=== PATIENT | female | born 1980 | race Hispanic/Latino ===

== ENCOUNTER 2024-05-22 01:18 | Emergency (ER) | payer SELFPAY ==
[~2024-05-22] VITALS: Ht 154.9 cm; Wt 81.6 kg
[2024-05-22 01:50] VITALS: TEMP 98.7
[2024-05-22 01:53] LABS: BASOPHILS # (AUTO) 0.07 K/uL (0.00-0.20); BASOPHILS % (AUTO) 0.5 % (0.0-5.0); EOSINOPHILS # (AUTO) 0.05 K/uL (0.00-0.70); EOSINOPHILS % (AUTO) 0.4 % (0.0-8.0); HEMATOCRIT 39.9 % (36-48); IMMATURE GRANULOCYTE ABSOLUTE 0.05 K/uL (0-1); LYMPHOCYTES # (AUTO) 3.1 K/uL (1.0-4.8); LYMPHOCYTES % (AUTO) 23.5 % (21.0-51.0); MEAN CORPUSCULAR HEMOGLOBIN 29.4 pg (27.0-33.0); MEAN CORPUSCULAR HGB CONC 33.3 g/dL (32.0-36.0); MEAN CORPUSCULAR VOLUME 88.1 fL (79-99); MONOCYTES # (AUTO) 0.6 K/uL (0.1-1.0); MONOCYTES % (AUTO) 4.4 % (3.0-13.0); NEUTROPHILS # (AUTO) 9.2 K/uL (1.8-7.7); NEUTROPHILS % (AUTO) 70.8 % (40.0-77.0); PLATELET COUNT (AUTO) 388 K/uL (130-400); RED BLOOD CELL COUNT(AUTO) 4.53 MIL/uL (4.00-5.50); RED CELL DISTRIBUTION WIDTH 13.2 % (11.0-15.5); WHITE BLOOD COUNT (AUTO) 13.1 K/uL (4.8-10.8)
[2024-05-22 02:00] LABS: CREATININE 0.7 mg/dL (0.5-1.0); POTASSIUM 4.1 mmol/L (3.5-5.1)
[2024-05-22 02:04] LABS: INR 0.97 (0.85-1.15); PROTHROMBIN TIME 10.5 SEC (9.6-11.6)
[2024-05-22 02:13] LABS: APPEARANCE,URINE CLEAR (CLEAR); BILIRUBIN,URINE NEGATIVE (NEGATIVE); COLOR,URINE COLORLESS (YELLOW); GLUCOSE, URINE (UA) NEGATIVE (NEGATIVE); KETONES,URINE NEGATIVE (NEGATIVE); LEUKOCYTE ESTERASE ,URINE NEGATIVE Leu/uL (NEGATIVE); NITRATE,URINE NEGATIVE (NEGATIVE); OCCULT BLOOD,URINE NEGATIVE (NEGATIVE); PROTEIN,URINE NEGATIVE (NEGATIVE); UROBILINOGEN,URINE 0.2 mg/dL (0.2-1.0)
[2024-05-22 02:15] LABS: ADD UA MICROSCOPIC NO
[2024-05-22] MEDS: hydrALAZine 20MG/ML VIAL IV ONE (02:24)
[2024-05-22] MEDS: furoSEMIDE 40 MG TABLET PO ONE (02:24)
[2024-05-22 02:29] LABS: B-TYPE NATRIURETIC PEPTIDE 7 pg/mL (0-100)
[2024-05-22] MEDS: ONDANSETRON 4MG INJ IVP ONE (03:38)
[2024-05-22] MEDS: DiphenhydrAMINE HCL 50 MG/ML VIAL IV ONE (03:38)
[2024-05-22] MEDS: LORazepam 2 MG/ML 1 ML VIAL IVP ONE (04:16)
[2024-05-22 06:11] VITALS: BP 127/86; PULSE 95; RESP 18; O2SAT 100
[2024-05-22] MEDS ORDERED: AMLO5TAB4 PO (06:17)
== END 2024-05-22 06:40 | disposition home or self-care (01) ==
LOC: EDH 01:18
DX: I10 Essential (primary) hypertension (principal); D69.6 Thrombocytopenia, unspecified; Z79.899 Other long term (current) drug therapy
CPT/HCPCS: 99285; 96374; 96375; 70450; 71045; 82550; 84484 ×2; 80048; 83880; 85025; 85610; 85730; 81003; 81025; 36415; 93005; J1200; J0360; J2405; J2060